=== PATIENT | male | born 1995 | race Two or more races ===

== ENCOUNTER 2016-02-26 15:58 | Emergency (ER) | payer BC ==
[2016-02-26 16:11] VITALS: BP 120/74; PULSE 72; RESP 20; TEMP 98.1; O2SAT 98
--- NOTE | 2016-02-26 17:29 | EDPHY ---
General - History Smoking Status: Never smoked Narrative: CHIEF COMPLAINT: Cough, sore throat HISTORY OF PRESENT ILLNESS: nearly 1 month of generalize pain in the throat, cough, postnasal drip. The symptoms are gradual onset. They are constant in duration. They are not improved with any ibuprofen orally. He is currently in a recovery residence, they do not allow him to take anything other than anti- inflammatories. He has been seen by urgent care and prescribed Tessalon Perles without any improvement. He has no chest pain. No shortness of breath. No fevers or chills. No headache. No body aches. No nausea vomiting or diarrhea. No other associated complaints or modifying factors. Nonsmoker REVIEW OF SYSTEMS: Ten systems reviewed and are negative unless otherwise noted in the HPI EXAMINATION General Appearance: Alert, no distress Head: normocephalic, atraumatic Eyes: Pupils equal and round, no conjunctival pallor or injection ENT, Mouth: Mucous membranes moist, no erythema. Uvula is midline. No abscess. No tonsillar exudates Neck: Normal inspection, supple, non-tender, no lymphadenopathy Respiratory: Lungs are clear to auscultation other than mild, scattered rhonchi. No consolidation Cardiovascular: Regular rate and rhythm Gastrointestinal: no abdominal distention Neurological: A&O, nonfocal Skin: Warm and dry, no rash Extremities: Nontender, no pedal edema Psychiatric: Mood and affect normal MDM: upper respiratory infection with bronchitis. There is no evidence of pneumonia by history or examination. There is no erythema of the posterior pharynx, although there is postnasal drip. Plan for discharge home with treatment with steroid Mucinex. Follow up with primary care physician. Patient is comfortable this plan and discharged home in stable condition. SUPERVISION:This patient was independently evaluated without the aide of supervising physician. (Glen Snow) I did not see this patient while he was in the emergency department. However his care was discussed with the PA while the patient was in the department. I agree with treatment plan and management (Piotr Benítez) - Objective Vital Signs: Initial Vital Signs Temperature (C) 36.7 C 02/26/16 16:08 Heart Rate 72 02/26/16 16:08 Respiratory Rate 20 02/26/16 16:08 Blood Pressure 120/74 02/26/16 16:08 O2 Sat (%) 98 02/26/16 16:08 O2 Delivery Mode Room Air Allergies/Adverse Reactions: No Known Allergies Allergy (Unverified 02/26/16 16:07) Home Medications: Medication Instructions Recorded Guaifenesin/D-Methorphan Hb 1 each PO Q12HRS #30 tbmp.12hr 02/26/16 [Mucinex Dm ER 1,200-60 mg Tab] predniSONE 60 mg PO DAILY #15 tab 02/26/16 Departure - Departure Disposition: Home, Routine, Self-Care Clinical Impression: Acute bronchitis, URI (upper respiratory infection) Condition: Good Instructions: Upper Respiratory Infection (ED), Acute Bronchitis (ED) Additional Instructions: Follow-up with primary care physician. Return to the emergency department if symptoms worsen Referrals: OUT OF STATE,. [Primary Care Provider] - As per Instructions [facility] [Outside] - As per Instructions Sergio Mcnulty MD [Medical Doctor] - As per Instructions Prescriptions: Guaifenesin/D-Methorphan Hb [Mucinex Dm ER 1,200-60 mg Tab] 1 each PO Q12HRS # 30 tbmp.12hr predniSONE 60 mg PO DAILY #15 tab
== END 2016-02-26 17:38 | disposition home or self-care (01) ==
DX: J20.9 Acute bronchitis, unspecified (principal); J06.9 Acute upper respiratory infection, unspecified

== ENCOUNTER 2016-03-04 19:07 | Emergency (ER) | payer BC ==
[2016-03-04 20:32] VITALS: BP 126/86; PULSE 70; RESP 16; TEMP 98.2; O2SAT 96
[2016-03-04] MEDS ORDERED: NS 1,000 ML IV ONE (21:56)
--- NOTE | 2016-03-04 22:01 | EDPHY ---
General - History Smoking Status: Never smoked Narrative: CHIEF COMPLAINT: Sore throat, difficulty swallowing HISTORY OF PRESENT ILLNESS: greater than 1 week history of sore throat. I did see the patient 1 week ago with same complaint with a negative strep test. We discharged him home with a course of steroids and cough medicine as he was coughing at the time. His cough has resolved but he has persistent sore throat. It is moderate to severe. Worse with attempted swallowing but no difficulty breathing. No hoarseness. No fever or chills. No cough at this time. No chest pain or shortness of breath. No urinary or abdominal complaints. Some improvement with ibuprofen but no resolution. No other associated complaints or modifying factors. REVIEW OF SYSTEMS: Ten systems reviewed and are negative unless otherwise noted in the HPI EXAMINATION General Appearance: Alert, no distress Head: normocephalic, atraumatic Eyes: Pupils equal and round, no conjunctival pallor or injection. EOMs intact ENT, Mouth: Mucous membranes moist. Uvula is midline. There is no evidence of Alejandro's. No posterior erythema or edema. No abscess. Neck: Normal inspection, supple, non-tender . Range of motion intact in all planes Respiratory: Lungs are clear to auscultation. No wheezing, rhonchi or crackles. Cardiovascular: Regular rate and rhythm . pulses intact distally with brisk cap refill Gastrointestinal: Abdomen is soft and nontender Back: non-tender, no bony abnormalities Neurological: A&O, nonfocal, normal gait Skin: Warm and dry, no rash Extremities: Nontender, no pedal edema Psychiatric: Mood and affect normal DIFFERENTIAL DIAGNOSES: Including but not limited to mono, strep, bacterial infection, viral infection , abscess MDM: ongoing sore throat. There is no hoarseness or hot potato voice on examination. No abscess noted. No erythema. No unilateral swelling of the tonsils. Monitor test has been ordered at this time. This is positive we will treat him symptomatically. If it is negative we will proceed with a CT scan of the neck soft tissue at his request. I do not see any abnormality of the airway at this time his vital signs are stable. 10:50 p.m. I have re-evaluated the patient. His mono test is negative. The strep test today is also negative. I ordered a CT scan of the neck soft tissues rule out abscess or call abnormality. The patient had initially requested this but now he is refusing this. He says he has been here too long and asking to be discharged home. We discussed the risks, benefits and alternatives. Although I have a low clinical suspicion, I did inform him of the risks of the possibility of abnormalities on the CT scan we could find. He is willing to assume these risks including worsening condition and even . He will be discharged home with clindamycin for empiric coverage of possibility of bacterial infection. Strict ER precautions for worsening pain, hoarseness, difficulty swallowing. SUPERVISION:This patient was independently evaluated without the aide of supervising physician. (Glen Snow) - Objective Vital Signs: Initial Vital Signs Temperature (C) 36.8 C 03/04/16 20:30 Heart Rate 70 03/04/16 20:30 Respiratory Rate 16 03/04/16 20:30 Blood Pressure 126/86 H 03/04/16 20:30 O2 Sat (%) 96 03/04/16 20:30 O2 Delivery Mode Room Air Allergies/Adverse Reactions: No Known Allergies Allergy (Unverified 02/26/16 16:07) Home Medications: Medication Instructions Recorded Clindamycin 300 mg PO Q8 #42 cap 03/04/16 traMADol [Ultram 50 mg (*)] 50 mg PO Q6 PRN #15 tab 03/04/16 Laboratory Results: 03/04/16 03/04/16 03/04/16 Unknown 22:24 22:22 POC Hgb 17.7 H gm/dL (14.5-17.3) POC Hct 52 H % (42.8-50.6) POC Sodium 143 mEq/L (134-144) POC Potassium 3.8 mEq/L (3.3-5.0) POC Chloride 102 mEq/L (96-108) POC BUN 15 mg/dL (7-23) POC Creatinine 0.9 mg/dL (0.8-1.5) POC Glucose 82 mg/dL (70-100) Monoscreen NEGATIVE (NEGATIVE) Group A Strep Screen Group A Strep DNA Pending 03/04/16 20:35 POC Hgb POC Hct POC Sodium POC Potassium POC Chloride POC BUN POC Creatinine POC Glucose Monoscreen Group A Strep Screen NEGATIVE (NEGATIVE) Group A Strep DNA Medications Given: Discontinued Medications Clindamycin (Cleocin 150 Mg Prepack#6) 1 btl TAKEHOME EDNOW ONE PRN Reason: Protocol Stop: 03/04/16 22:58 Last Admin: 03/04/16 23:10 Dose: 1 btl Sodium Chloride (Ns) 1,000 mls @ 0 mls/hr IV ONCE ONE PRN Reason: Wide Open Stop: 03/04/16 21:57 Last Admin: 03/04/16 22:23 Dose: 1,000 mls Point of Care Test Results: 03/04/16 22:24 POC Sodium 143 POC Potassium 3.8 POC Chloride 102 POC BUN 15 POC Creatinine 0.9 POC Glucose 82 Departure - Departure Disposition: Home, Routine, Self-Care Clinical Impression: Acute pharyngitis Condition: Good Instructions: Clindamycin (By mouth), Pharyngitis (ED) Additional Instructions: Return to the ER for CT scan to change her mind for return to the ER immediately for worsening pain, difficulty swallowing or hoarseness Referrals: OUT OF STATE,. [Primary Care Provider] - As per Instructions Trish Zarate MD [Medical Doctor] - As per Instructions Prescriptions: Clindamycin 300 mg PO Q8 #42 cap traMADol [Ultram 50 mg (*)] 50 mg PO Q6 PRN #15 tab PRN Reason: Pain, Mild
[2016-03-04] MEDS ORDERED: CLINDAMYCIN 150MG PREPACK#6 BTL TAKEHOME ONE (22:57)
== END 2016-03-04 23:11 | disposition home or self-care (01) ==
DX: J02.9 Acute pharyngitis, unspecified (principal)
CPT/HCPCS: 82947-QW

== ENCOUNTER 2016-04-08 14:33 | Emergency (ER) | payer BC ==
[2016-04-08 14:44] VITALS: RESP 18; TEMP 98.4
[2016-04-08] MEDS ORDERED: PROPARACAINE 0.5% 15 ML OPHT DROP ONE (15:29)
[2016-04-08] MEDS ORDERED: FLUORESCEIN SODIUM 1 MG STRIP OP ONE (15:29)
--- NOTE | 2016-04-08 15:56 | EDPHY ---
H & P Stated Complaint: left eye matting since this am HPI/ROS: Chief complaint: Pinkeye History of present illness: This is a 20-year-old male who presents to the emergency department concerned he has pinkeye. Patient reports over the last day his eye became itchy and red. This morning he awoke and his eyelashes were matted together with pustular discharge. He denies associated signs or symptoms including no fevers, no other cold symptoms. Further he denies any eye pain or visual disturbances. No trauma. He has not had any eye surgery, he does not use contact lenses. He has been around multiple people with pinkeye recently. - Personal History Current Tetanus/Diphtheria Vaccine: Unsure Current Tetanus Diphtheria and Acellular Pertussis (TDAP): Unsure Tetanus Vaccine Date: < 10 years - Medical/Surgical History Hx Asthma: No Hx Chronic Respiratory Disease: No Hx Diabetes: No Hx Cardiac Disease: No Hx Renal Disease: No Hx Cirrhosis: No Hx Alcoholism: No Hx HIV/AIDS: No Hx Splenectomy or Spleen Trauma: No Other PMH: denies - Social History Smoking Status: Never smoked - Physical Exam Exam: General Appearance: Alert, nontoxic. Eyes: Slight pustular discharge from the left eye. The conjunctiva is mildly injected. No subconjunctival hemorrhage, no hyphema, no hypopyon. Right eye is unremarkable. PERRLA. EOM intact without discomfort. Red reflex present bilaterally. ENT: Tympanic membranes, external auditory canals, external ears and surrounding soft tissue including over the mastoids are unremarkable. Nasopharynx is not injected. There is no rhinorrhea. Oropharynx is not injected. There is no edema. There is no exudate. There is no asymmetry. The uvula is midline. No elevation of the tongue. There is no hoarseness, no drooling, no trismus, no stridor. Respiratory: Chest is nontender, lungs are clear to auscultation. Cardiac: regular rate and rhythm. Musculoskeletal: Neck is supple and nontender. Extremities have full range of motion and are nontender. Skin: Periorbital tissue unremarkable. Constitutional: Initial Vital Signs Temperature (C) 36.9 C 04/08/16 14:41 Heart Rate 81 04/08/16 14:41 Respiratory Rate 18 04/08/16 14:41 Blood Pressure 160/82 H 04/08/16 14:41 O2 Sat (%) 99 04/08/16 14:41 O2 Delivery Mode Room Air Allergies/Adverse Reactions: No Known Allergies Allergy (Verified 04/08/16 14:39) Home Medications: Medication Instructions Recorded Ciprofloxacin [Ciloxan Opht Drops] 1 drops OP Q4 7 Days 04/08/16 Medical Decision Making ED Course/Re-evaluation: Patient seen under the supervision of my secondary supervising physician Dr. Alicia Escobedo. Patient presents to the emergency department concerned he has pinkeye. I do believe history and physical exam is consistent with a conjunctivitis. He does not use contact lenses and has never had eye surgery. He will be started on ciloxin eyedrops. Home care is discussed including warm compresses. He is referred to ophthalmology for further evaluation and care. Strict return precautions are given. Patient voiced understanding and agreement with plan. Departure - Departure Disposition: Home, Routine, Self-Care Clinical Impression: Conjunctivitis Condition: Good Instructions: Conjunctivitis (ED) Additional Instructions: Follow-up with Ophthalmology for continued evaluation and care Apply warm compresses to the eye multiple times daily as discussed If symptoms worsen or new symptoms develop return to the emergency department for recheck Referrals: Dayton Fuentes MD [Medical Doctor] - As per Instructions Prescriptions: Ciprofloxacin [Ciloxan Opht Drops] 1 drops OP Q4 7 Days
[2016-04-08 16:08] VITALS: BP 139/87; PULSE 88; O2SAT 97
== END 2016-04-08 16:00 | disposition home or self-care (01) ==
DX: H10.9 Unspecified conjunctivitis (principal)

== ENCOUNTER 2016-05-04 12:09 | Emergency (ER) | payer BC ==
[2016-05-04 12:14] VITALS: PULSE 67
--- NOTE | 2016-05-04 12:46 | EDPHY ---
H & P Stated Complaint: hearing trouble both ears, L more than R Time Seen by Provider: 05/04/16 12:45 HPI/ROS: CHIEF COMPLAINT: Bilateral ear pain, decreased hearing HISTORY OF PRESENT ILLNESS: The patient presents to the ED with complaints of bilateral ear pain and decreased hearing. The patient has had a upper respiratory infection for the past 10-12 days. The patient denies fever. He denies significant past medical history. He denies additional complaints. The patient denies any complaints of acute headache, numbness, weakness or other concerns. REVIEW OF SYSTEMS: A comprehensive 10 point review of systems is otherwise negative aside from elements mentioned in the history of present illness. Source: Patient Exam Limitations: No limitations - Personal History Current Tetanus/Diphtheria Vaccine: Yes Current Tetanus Diphtheria and Acellular Pertussis (TDAP): Yes Tetanus Vaccine Date: < 10 years - Medical/Surgical History Hx Asthma: No Hx Chronic Respiratory Disease: No Hx Diabetes: No Hx Cardiac Disease: No Hx Renal Disease: No Hx Cirrhosis: No Hx Alcoholism: No Hx HIV/AIDS: No Hx Splenectomy or Spleen Trauma: No Other PMH: denies - Social History Smoking Status: Never smoked - Physical Exam Exam: General Appearance: Alert, no distress Eyes: Pupils equal and round no pallor or injection ENT, Mouth: Bilateral otitis media noted Respiratory: There are no retractions, lungs are clear to auscultation Cardiovascular: Regular rate and rhythm Gastrointestinal: Abdomen is soft and nontender, no masses, bowel sounds normal Neurological: A&O, normal motor function, normal sensory exam, normal cranial nerves Constitutional: Initial Vital Signs Temperature (C) 36.7 C 05/04/16 12:12 Heart Rate 67 05/04/16 12:12 Respiratory Rate 17 05/04/16 12:12 Blood Pressure 122/83 H 05/04/16 12:12 O2 Sat (%) 98 05/04/16 12:12 O2 Delivery Mode Room Air Allergies/Adverse Reactions: No Known Allergies Allergy (Verified 05/04/16 12:12) Home Medications: Medication Instructions Recorded NK [No Known Home Meds] 05/04/16 Medical Decision Making ED Course/Re-evaluation: The patient presents to the ED with decreased hearing in the setting of bilateral effusions and otitis media. The patient will be started on amoxicillin for the next 7 days. I have asked him to follow up with ENT for a hearing check in the next week. The patient has been instructed to return to the ED for severe headache or other concerns. Departure - Departure Disposition: Home, Routine, Self-Care Clinical Impression: Bilateral otitis media Condition: Good Instructions: Otitis Media (ED) Additional Instructions: 1. Please take antibiotics as directed for next 7 days. 2. Please schedule a follow-up appointment with the Ear Nose Throat physician you have been referred to for a hearing check in the next week. 3. Continue Sudafed and Mucinex for congestion. Referrals: Roly Mckeon DO [Doctor of Osteopathy] - As per Instructions
[2016-05-04 13:03] VITALS: BP 109/63; RESP 18; TEMP 97.7; O2SAT 92
== END 2016-05-04 13:03 | disposition home or self-care (01) ==
DX: H66.93 Otitis media, unspecified, bilateral (principal)

== ENCOUNTER 2016-06-02 01:06 | Emergency (ER) | payer BC ==
--- NOTE | 2016-06-02 01:58 | EDPHY ---
H & P Stated Complaint: cough, fever Time Seen by Provider: 06/02/16 01:43 HPI/ROS: CHIEF COMPLAINT: Cough, sore throat body aches HISTORY OF PRESENT ILLNESS: The patient is a 20-year-old man who comes to the emergency department complaining of a cough, sore throat and body aches. He has had the symptoms for about 5 days. He also has a sore on his lip that he is not sure where it came from. He denies trauma. This is his 4th visit to the ER this year for infectious type symptoms. Denies having any significant past medical history. REVIEW OF SYSTEMS: Constitutional: See HPI EENTM: See HPI Respiratory: See HPI Cardiac: denies: chest pain, irregular heart rate, lightheadedness, palpitations Gastrointestinal/Abdominal: denies: abdominal pain, diarrhea, nausea, vomiting, blood streaked stools Genitourinary: denies: dysuria, frequency, hematuria, pain Musculoskeletal: denies: joint pain, muscle pain Skin: denies: lesions, rash, jaundice, bruising Neurological: denies: headache, numbness, paresthesia, tingling, dizziness, weakness Hematologic/Lymphatic: denies: blood clots, easy bleeding, easy bruising Immunologic/allergic: denies: HIV/AIDS, transplant EXAM: GENERAL: Coughing, well-appearing HEAD: Atraumatic, normocephalic. EYES: Pupils equal round and reactive to light, extraocular movements intact, sclera anicteric, conjunctiva are normal. ENT: TMs normal, nares patent, oropharynx with mild erythema and possibly some thrush, lesion to right lower lip with some swelling most consistent with trauma , possibly unusual herpes lesion Moist mucous membranes. NECK: Normal range of motion, supple without lymphadenopathy or JVD. LUNGS: Breath sounds clear to auscultation bilaterally and equal. No wheezes rales or rhonchi. Nonproductive coughing HEART: Regular rate and rhythm without murmurs, rubs or gallops. ABDOMEN: Soft, nontender, normoactive bowel sounds. No guarding, no rebound. No masses appreciated. BACK: No CVA tenderness, no spinal tenderness, step-offs or deformities EXTREMITIES: Normal range of motion, no pitting or edema. No clubbing or cyanosis. NEUROLOGICAL: Cranial nerves II through XII grossly intact. Normal speech, normal gait. 5/5 strength, normal movement in all extremities, normal sensation PSYCH: Normal mood, normal affect. SKIN: Warm, dry, normal turgor, no visible rashes or lesions. Source: Patient Exam Limitations: No limitations - Personal History Current Tetanus/Diphtheria Vaccine: Yes Current Tetanus Diphtheria and Acellular Pertussis (TDAP): Yes Tetanus Vaccine Date: < 10 years - Medical/Surgical History Hx Asthma: No Hx Chronic Respiratory Disease: No Hx Diabetes: No Hx Cardiac Disease: No Hx Renal Disease: No Hx Cirrhosis: No Hx Alcoholism: No Hx HIV/AIDS: No Hx Splenectomy or Spleen Trauma: No Other PMH: URI - Family History Significant Family History: No pertinent family hx - Social History Smoking Status: Never smoked Alcohol Use: Sober Drug Use: None Constitutional: Initial Vital Signs Temperature (C) 37 C 06/02/16 01:15 Heart Rate 86 06/02/16 01:15 Respiratory Rate 16 06/02/16 01:15 Blood Pressure 111/66 06/02/16 01:15 O2 Sat (%) 98 06/02/16 01:15 O2 Delivery Mode Room Air Allergies/Adverse Reactions: No Known Allergies Allergy (Verified 05/04/16 12:12) Home Medications: Medication Instructions Recorded AZITHROMYCIN [Z-PACK] 250 mg PO DAILY #4 tab 06/02/16 Mucinex 06/02/16 Pseudoephedrine ER 06/02/16 Theraflu Expressmax Cold-Cough 06/02/16 Medical Decision Making - Diagnostics Imaging Results: X-ray: chest x-ray was obtained. I viewed the images myself on the PACS system. My interpretation of the images is: Consistent with bronchitis. The radiologist interpretation is pending. ED Course/Re-evaluation: I voiced my concern for the patient's frequent infections also his unusual oral lesions. I recommended he follow up with his primary to be tested for immuno compromising conditions including HIV. He understands and agrees with this plan. He declines this testing here. He states that he is moving back to [place] in a couple of days. Patient's x-rays consistent with bronchitis. I will start him on azithromycin. He is happy with this plan and declines further workup or testing. Differential Diagnosis: Partial list of the Differential diagnosis considered include but were not limited to; bronchitis, upper respiratory tract infection, strep throat, influenza, HIV and although unlikely based on the history and physical exam, I also considered diabetes, sinusitis, sepsis, meningitis. I discussed these differential diagnoses and the plan with the patient as well as the usual and expected course. The patient understands that the diagnosis is provisional and that in medicine we are not always correct and that further workup is often warranted. Usual and customary warnings were given. All of the patient's questions were answered. The patient was instructed to return to the emergency department should the symptoms at all worsen or return, otherwise to followup with the physician as we discussed. - Data Points Laboratory Results: 06/02/16 06/02/16 06/02/16 Unknown 01:54 01:54 Influenza Typ A,B (DFA) NEGATIVE FOR FLU (NEGATIVE) Group A Strep Screen NEGATIVE (NEGATIVE) Group A Strep DNA Pending Medications Given: Discontinued Medications Hydrocodone Bitart/Acetaminophen ([place] 5/325mg Prepack#6) 1 btl TAKEHOME EDNOW ONE Stop: 06/02/16 04:18 Last Admin: 06/02/16 04:18 Dose: 1 btl Azithromycin (Zithromax) 500 mg PO EDNOW ONE PRN Reason: Protocol Stop: 06/02/16 03:44 Last Admin: 06/02/16 04:17 Dose: 500 mg Departure - Departure Disposition: Home, Routine, Self-Care Clinical Impression: Acute bronchitis Qualifiers: Bronchitis organism: unspecified organism Qualified Code(s): J20.9 - Acute bronchitis, unspecified Condition: Fair Instructions: Hydrocodone/Acetaminophen (By mouth), Acute Bronchitis (ED) Referrals: NONE *PRIMARY CARE P,. [Primary Care Provider] - As per Instructions Prescriptions: AZITHROMYCIN [Z-PACK] 250 mg PO DAILY #4 tab
[2016-06-02] MEDS ORDERED: AZITHROMYCIN 250 MG TAB PO ONE (03:43)
[2016-06-02] MEDS ORDERED: HYDROCOD/APAP 5/325 PREPACK#6 BTL TAKEHOME ONE ×2 (04:12→04:17)
[2016-06-02 04:16] VITALS: BP 133/75; PULSE 97; RESP 18; TEMP 98.1; O2SAT 97
== END 2016-06-02 04:15 | disposition home or self-care (01) ==
DX: J20.9 Acute bronchitis, unspecified (principal)